=== PATIENT | male | born 1985 | race African-American/Black ===

== ENCOUNTER 2018-08-14 00:45 | Inpatient (IN) | payer OTHER ==
[2018-08-14 03:42] LABS: ADD MAN DIFF? NO
[2018-08-14 04:00] LABS: ALANINE AMINOTRANSFERASE 16 IU/L (13-69); ALBUMIN 4.3 g/dl (3.3-4.9); ALKALINE PHOSPHATASE 110 IU/L (42-121); ANION GAP 8 (5-13); ASPARTATE AMINO TRANSFERASE 19 IU/L (15-46); BILIRUBIN,INDIRECT 0.2 mg/dl (0-1.1); BILIRUBIN,TOTAL 0.2 mg/dl (0.2-1.3); BLOOD UREA NITROGEN 12 mg/dl (7-20); CALCIUM 9.3 mg/dl (8.4-10.2); CARBON DIOXIDE 26 mmol/L (21-31); CHLORIDE 106 mmol/L (97-110); CREATININE 0.94 mg/dl (0.61-1.24); Estimated GFR > 60 mL/min (>60); GLUCOSE 94 mg/dl (70-220); POTASSIUM 3.7 mmol/L (3.5-5.1); SODIUM 140 mmol/L (135-144); TOTAL PROTEIN 8.6 g/dl (6.1-8.1)
[2018-08-14 04:03] LABS: WHITE BLOOD COUNT 7.2 10^3/ul (4.8-10.8)
[2018-08-14 04:03] LABS: BASOPHILS % 0.4 % (0.0-2.0); EOSINOPHILS # 0.1 10^3/ul (0.0-0.5); EOSINOPHILS % 1.3 % (0.0-7.0); HEMATOCRIT 39.2 % (42.0-52.0); HEMOGLOBIN 12.5 g/dl (14.0-18.0); LYMPHOCYTES % 28.3 % (15.0-51.0); MEAN CORPUSCULAR HEMOGLOBIN 28.7 pg (29.0-33.0); MEAN CORPUSCULAR HGB CONC 31.9 g/dl (32.0-37.0); MEAN CORPUSCULAR VOLUME 89.9 fl (82.0-101.0); MEAN PLATELET VOLUME 8.7 fl (7.4-10.4); MONOCYTE # 0.8 10^3/ul (0.3-0.9); MONOCYTES % 11.6 % (0.0-11.0); NEUTROPHIL # 4.2 10^3/ul (1.6-7.5); NEUTROPHILS % 58.1 % (39.0-77.0); PLATELET COUNT 345 10^3/UL (140-415); RED BLOOD COUNT 4.36 10^6/ul (4.70-6.10); RED CELL DISTRIBUTION WIDTH 13.4 % (11.5-14.5)
[2018-08-14 04:14] LABS: B-TYPE NATRIURETIC PEPTIDE 27 PG/ML (0-125); TROPONIN-I < 0.012 ng/ml (0.000-0.120)
[2018-08-14] MEDS: SOD CHLORIDE 0.9% 1,000 ML IV (06:59)
[2018-08-14] MEDS ORDERED: IBUPROFEN 600 MG TAB PO (07:00)
[2018-08-14] MEDS ORDERED: DOCUSATE SODIUM 100 MG CAP PO (07:00)
[2018-08-14] MEDS ORDERED: LORAZEPAM 2 MG INJ IV (07:00)
[2018-08-14] MEDS ORDERED: morphine SULFATE/PF (2 MG/2 ML) SYG IV (07:00)
[2018-08-14] MEDS ORDERED: ONDANSETRON 4 MG INJ IV (07:00)
[2018-08-14] MEDS ORDERED: MAGNESIUM HYDROXIDE 30ML CUP PO (07:00)
[2018-08-14] MEDS ORDERED: NITROGLYCERIN (SL) 0.4 MG TAB SL (07:00)
[2018-08-14] MEDS ORDERED: NACL 0.9% 3 ML SYG IV (07:00)
[2018-08-14] MEDS ORDERED: HYDROCODONE/APAP (5/325) TAB PO (07:00)
[2018-08-14] MEDS ORDERED: hydrALAzine 20 MG INJ IV (07:00)
[2018-08-14] MEDS ORDERED: ALBUTEROL/IPRATROPIUM (NEB) 3 ML AMP HHN (07:00)
[2018-08-14] MEDS ORDERED: ACETAMINOPHEN 325 MG TAB PO (07:00)
[2018-08-14 08:43] LABS: CREATINE KINASE 76 IU/L (23-200)
[2018-08-14 08:56] LABS: CK INDEX 0.3; CK-MB < 0.22 ng/ml (0.0-2.4); TROPONIN-I < 0.012 ng/ml (0.000-0.120)
[2018-08-14] MEDS: HEPARIN 5,000 UNIT/1 ML VIAL SC (09:00)
[2018-08-14 10:24] LABS: FREE T4 (FREE THYROXINE) 1.29 ng/dl (0.79-2.35)
[2018-08-14 12:50] LABS: CREATINE KINASE 73 IU/L (23-200)
[2018-08-14 13:04] LABS: CK INDEX 0.3; CK-MB < 0.22 ng/ml (0.0-2.4); TROPONIN-I < 0.012 ng/ml (0.000-0.120)
== END 2018-08-14 16:40 | disposition left against medical advice (07) | DRG 206 ==
LOC: E/R 00:45 → 6WM 05:10
DX: M94.0 Chondrocostal junction syndrome [Tietze] (principal); Z72.0 Tobacco use; Z91.19 Patient's noncompliance with other medical treatment and regimen
CPT/HCPCS: 36415; 71045; 80053; 82550; 82553; 83880; 84439; 84484; 85025; 93005; 93306; 99285-25

== ENCOUNTER 2018-09-04 15:11 | Emergency (ER) | payer SELFPAY, OTHER | END 2018-09-04 18:04 | disposition left against medical advice (07) | LOC: E/R 15:11 | DX: Z53.21 Procedure and treatment not carried out due to patient leaving prior to being seen by health care provider (principal) ==